=== PATIENT | female | born 2000 | race Asian ===

== ENCOUNTER 2020-02-12 13:49 | Emergency (ER) | payer OTHER ==
[~2020-02-12] VITALS: Ht 165.1 cm; Wt 62.0 kg
[2020-02-12 14:20] VITALS: BP 120/71
--- NOTE | 2020-02-12 15:09 | PHYS DOC ---
General Adult EDM: Chief Complaint: HAND PROBLEM HPI: HPI: Patient is a 19-year-old female who presents with pain to left hand. Patient reports breaking a bottle 3 months ago when glass got stuck into her hand. Patient states that 2 days ago she started having pain in the hand and says it just bothers her that she has a piece of glass stuck in her hand. Patient has full range of motion with hand and is not interfering with daily activities. (MARIE SORTO APRN) Review of Systems: Review of Systems: Constitutional: Denies fever or chills Eyes: Denies change in visual acuity HENT: Denies nasal congestion or sore throat Respiratory: Denies cough or shortness of breath Cardiovascular: Denies chest pain or edema GI: Denies abdominal pain, nausea, vomiting, bloody stools or diarrhea : Denies dysuria Musculoskeletal: Denies back pain or joint pain Integument: Denies rash, localized pain on right hand Neurologic: Denies headache, focal weakness or sensory changes Endocrine: Denies polyuria or polydipsia Lymphatic: Denies swollen glands Psychiatric: Denies depression or anxiety (MARIE SORTO APRN) Allergies: Allergies: Allergies Coded Allergies Type Severity Reaction Last Updated Verified No Known Drug Allergies 02/12/20 No (MARIE SORTO APRN) Physical Exam: PE: Constitutional: Well developed, well nourished, no acute distress, non-toxic appearance. [] HENT: Normocephalic, atraumatic, bilateral external ears normal, oropharynx luch[address], no oral exudates, nose normal. [] Eyes: PERRLA, EOMI, conjunctiva normal, no discharge. [] Neck: Normal range of motion, no tenderness, supple, no stridor. [] Cardiovascular:Heart rate regular rhythm, no murmur [] Lungs & Thorax: Bilateral breath sounds clear to auscultation [] Abdomen: Bowel sounds normal, soft, no tenderness, no masses, no pulsatile masses. [] Skin: Warm, dry, no erythema, no rash. superficial pain to left hand from piece of glass Back: No tenderness, no CVA tenderness. [] Extremities: No tenderness, no cyanosis, no clubbing, ROM intact, no edema. [] Neurologic: Alert and oriented X 3, normal motor function, normal sensory function, no focal deficits noted. [] Psychologic: Affect normal, judgement normal, mood normal. [] (MARIE SORTO APRN) EKG: EKG: [] (MARIE SORTO APRN) Radiology/Procedures: Radiology/Procedures: [] (MARIE SORTO APRN) Heart Score: Risk Factors: Risk Factors: DM, Current or recent (<one month) smoker, HTN, HLP, family history of CAD, obesity. Risk Scores: Score 0 - 3: 2.5% MACE over next 6 weeks - Discharge Home Score 4 - 6: 20.3% MACE over next 6 weeks - Admit for Clinical Observation Score 7 - 10: 72.7% MACE over next 6 weeks - Early Invasive Strategies (MARIE SORTO APRN) Course & Med Decision Making: Course & Med Decision Making Pertinent Labs and Imaging studies reviewed. (See chart for details) []Patient offered xray on hand and declined. (MARIE SORTO APRN) Course & Med Decision Making Oversaw care of patient. Discussed case at length with YARN EXAMINER. I agree to note, plan of care and dispo as stated. (WILLIAMS DAMON DO) Dragon Disclaimer: Draguche Disclaimer: This electronic medical record was generated, in whole or in part, using a voice recognition dictation system. (MARIE SORTO APRN) Departure Departure: Impression: Primary Impression: Pain, hand Qualified Codes: M79.642 - Pain in left hand Additional Impression: Foreign body hand Disposition: 01 DC HOME SELF CARE/HOMELESS Condition: GOOD Referrals: DEWAYNE PRATT DO (PCP) Patient Instructions: Hand Injuries, [id number] MARIE SORTO APRN Feb 12, 2020 15:09 WILLIAMS DAMON DO Feb 13, 2020 13:43
== END 2020-02-12 15:18 | disposition home or self-care (01) ==
LOC: ER 13:49
DX: S60.552A Superficial foreign body of left hand, initial encounter (principal); M79.642 Pain in left hand; W25.XXXA Contact with sharp glass, initial encounter; Y93.89 Activity, other specified; Y92.89 Other specified places as the place of occurrence of the external cause; Y99.8 Other external cause status
CPT/HCPCS: 99281

== ENCOUNTER 2020-06-29 17:39 | Emergency (ER) | payer OTHER ==
[~2020-06-29] VITALS: Ht 165.1 cm; Wt 59.2 kg
--- NOTE | 2020-06-29 18:01 | PHYS DOC ---
Past History Past Medical History: No Pertinent History Past Surgical History: No Surgical History Alcohol Use: None General Adult HPI: HPI: ".. [facility] .. got some meds to make me have an miscarry or . I took the lst dosage of meds (Mifepristone)... and I am to take a second dose... but I been having some cramping... ".. I have has some spottilng already..I am about 10 weeks .... 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 Patient up-to-date with vaccinations including Covid. No history immunosuppression. No history recent travel. No history of trauma. No history of previous pregnancies. No history of specific ill contacts. Poorly patient is approximately 10 weeks or less by ultrasound. No history of abdomen surgeries. Patient states breathing is equivalent to the start of a menstruation. Patient does have associated nausea. No history of fever or chills. No history of dysuria. No history of travel. No specific ill contacts. No history of STDs. No history of trauma Review of Systems: Review of Systems: Constitutional: Denies fever or chills Eyes: Denies change in visual acuity HENT: Denies nasal congestion or sore throat Respiratory: Denies cough or shortness of breath Cardiovascular: Denies chest pain or edema GI: Complains of abdominal pain, cramping, nausea,. Denies vomiting, bloody stools or diarrhea : Denies dysuria Musculoskeletal: Denies back pain or joint pain Integument: Denies rash Neurologic: Denies headache, focal weakness or sensory changes Endocrine: Denies polyuria or polydipsia Lymphatic: Denies swollen glands Psychiatric: Denies depression or anxiety Family History: Family History: Noncontributory presentation Current Medications: Current Meds: See nursing for home meds Allergies: Allergies: Allergies Coded Allergies Type Severity Reaction Last Updated Verified No Known Drug Allergies 02/12/20 No Physical Exam: PE: Constitutional: Well developed, well nourished, moderate acute distress, non- toxic appearance. [] HENT: Normocephalic, atraumatic, bilateral external ears normal, oropharynx moist, no oral exudates, nose normal. [] Eyes: PERRLA, EOMI, conjunctiva normal, no discharge. [] Neck: Normal range of motion, no tenderness, supple, no stridor. [] Cardiovascular:Heart rate regular rhythm, no murmur [] Lungs & Thorax: Bilateral breath sounds clear to auscultation [] Abdomen: Bowel sounds decreased,, soft, generalized tenderness, no masses, no pulsatile masses. [No true focal areas of pain but more generalized lower pelvic pain Skin: Warm, dry, no erythema, no rash. [] Back: No tenderness, no CVA tenderness. [] Extremities: No tenderness, no cyanosis, no clubbing, ROM intact, no edema. No psoas sign. No cording. Neurologic: Alert and oriented X 3, normal motor function, normal sensory function, no focal deficits noted. [] Psychologic: Affect anxious, judgement normal, mood normal. [] EKG: EKG: [] Radiology/Procedures: Radiology/Procedures: [] Heart Score: C/O Chest Pain: N/A Risk Factors: Risk Factors: DM, Current or recent (<one month) smoker, HTN, HLP, family history of CAD, obesity. Risk Scores: Score 0 - 3: 2.5% MACE over next 6 weeks - Discharge Home Score 4 - 6: 20.3% MACE over next 6 weeks - Admit for Clinical Observation Score 7 - 10: 72.7% MACE over next 6 weeks - Early Invasive Strategies Course & Med Decision Making: Course & Med Decision Making Pertinent Labs and Imaging studies reviewed. (See chart for details) Patient received IV fluids. Morphine, Zofran. Patient's blood type is A+. Patient's cramping had resolved by time of discharge from the emergency department. Patient states she did appear to passed the fetus when she went to the bathroom. Bleeding has also slowed considerably by the time of discharge. Patient encouraged to follow-up primary care. Patient encouraged to have a recheck of her beta hCG in 3 days. Patient follow-up with Andreina. Patient return if any concerns. Patient push fluids. Would recommend continuing a vitamin. Return if any concerns. Patient avoid NSAIDs for the next 24 to 48 hours. May take Tylenol for pain. Impression: 1. Abdomen pain 2. Vaginal bleeding 3. In the process of inducing by Misoprostol 4. Beta-hCG is 127,738 5. Patient's blood type is A+ positive 6. Pt. Hgb 13.,6 [] Cody Disclaimer: Cody Disclaimer: This electronic medical record was generated, in whole or in part, using a voice recognition dictation system. Departure Departure: Referrals: DEWAYNE PRATT DO (PCP) Cody Disclaimer This chart was dictated in whole or in part using Voice Recognition software in a busy, high-work load, and often noisy Emergency Department environment. It may contain unintended and wholly unrecognized errors or omissions. SHAGGY GRACIA MD June 29, 2020 18:01
[2020-06-29] MEDS ORDERED: IV RINGERS SOLUTION,LACTATED 1,000 ML IV SCH (18:15)
--- NOTE | 2020-06-29 18:25 | EKG ---
[address] [address] Test Date: 2020-06-29 Test Time: 18:07:59 Pat Name: WOLF LEIJA Department: Room: Gender: F Adoption Coordinator: ERIC : 2000 Requested By: SHAGGY GRACIA Order Number: [id number] Reading MD: Measurements Intervals Bard Rate: 69 P: 0 CT: 142 QRS: 94 QRSD: 84 T: 28 QT: 378 QTc: 411 Interpretive Statements SINUS RHYTHM RIGHTWARD AXIS R-S TRANSITION ZONE IN V LEADS DISPLACED TO THE LEFT OTHERWISE NORMAL ECG RI6.02 No previous ECG available for comparison
[2020-06-29 18:48] LABS: BASO % 0 % (0-3); EOS # 0.1 x10^3/uL (0.0-0.7); EOS % 1 % (0-3); HEMATOCRIT 40.2 % (36.0-47.0); HEMOGLOBIN 13.6 g/dL (12.0-15.5); LYMPH # 0.9 x10^3/uL (1.0-4.8); LYMPH % 7 % (24-48); MEAN CORPUSCULAR HEMOGLOBIN 30 pg (25-35); MEAN CORPUSCULAR HGB CONC 34 g/dL (31-37); MEAN CORPUSCULAR VOLUME 88 fL (79-100); MONO # 0.5 x10^3/uL (0.0-1.1); MONO % 4 % (0-9); NEUT # 11.3 x10^3uL (1.8-7.7); NEUT % 88 % (31-73); PLATELET COUNT 257 x10^3/uL (140-400); RED BLOOD COUNT 4.58 x10^6/uL (3.50-5.40); RED CELL DISTRIBUTION WIDTH 13.6 % (11.5-14.5); WHITE BLOOD COUNT 12.8 x10^3/uL (4.0-11.0)
[2020-06-29 18:53] LABS: CALCIUM 8.6 mg/dL (8.5-10.1); CREATININE 0.7 mg/dL (0.6-1.0); GFR 105.6; POTASSIUM 3.6 mmol/L (3.5-5.1)
[2020-06-29 19:00] LABS: ALBUMIN 3.3 g/dL (3.4-5.0); DIRECT BILIRUBIN 0.1 mg/dL (0.0-0.2); MAGNESIUM 1.9 mg/dL (1.8-2.4); TOTAL BILIRUBIN 0.2 mg/dL (0.2-1.0); TOTAL PROTEIN 7.3 g/dL (6.4-8.2)
[2020-06-29] MEDS ORDERED: IV RINGERS SOLUTION,LACTATED 1,000 ML IV ONE (19:00)
[2020-06-29] MEDS ORDERED: MORPHINE SULFATE 10 MG/ML SYRINGE. SQ ONE (19:00)
[2020-06-29] MEDS ORDERED: ONDANSETRON PF 4 MG/2 ML VIAL. IVP ONE (19:00)
[2020-06-29 21:19] LABS: BARBITURATES NEG (NEG); BENZODIAZEPINES NEG (NEG); CANNABINOIDS POS (NEG); COCAINE NEG (NEG); METHADONE NEG (NEG); OPIATES POS (NEG); PHENCYCLIDINE NEG (NEG)
[2020-06-29 21:22] LABS: AMPHETAMINE/METHAMPHETAMINE NEG (NEG)
[2020-06-29 21:24] LABS: BILIRUBIN,URINE NEG (NEG); CLARITY,URINE CLOUDY; COLOR,URINE AMBER; GLUCOSE,URINE NEG (NEG)
[2020-06-29 21:25] LABS: BACTERIA,URINE 0 /HPF (0-FEW); NITRITE,URINE NEG (NEG); RBC,URINE TNTC /HPF (0-2); SQUAMOUS EPITHELIAL CELL,UR MOD /LPF; UROBILINOGEN,URINE 0.2 mg/dL (0.2 mg/dL)
[2020-06-29 22:12] VITALS: BP 119/61
== END 2020-06-29 22:30 | disposition home or self-care (01) ==
LOC: ER 17:39
DX: O46.91 Antepartum hemorrhage, unspecified, first trimester (principal); R07.89 Other chest pain; R10.2 Pelvic and perineal pain; Z3A.10 10 weeks gestation of pregnancy
CPT/HCPCS: 36415; 80048; 80076; 80307; 81001; 81025; 82550; 83735; 84484; 84702; 85025; 85379; 85610; 86900; 86901; 93005; 96361; 96372; 96374; 99285; J2270; J2405; J7120